=== PATIENT | female | born 1990 | race Caucasian/White ===

== ENCOUNTER 2019-06-13 16:57 | Emergency (ER) | payer SELFPAY ==
[~2019-06-13] VITALS: Ht 170.2 cm; Wt 99.8 kg
[2019-06-13 17:15] VITALS: BP 162/87
[2019-06-13] MEDS ORDERED: ALBU2.5V8 INH (17:40)
[2019-06-13] MEDS ORDERED: AZIT250T PO (17:40)
--- NOTE | 2019-06-13 17:40 | PHYS DOC ---
Past Medical History Past Medical History: No Pertinent History Past Surgical History: Other Additional Past Surgical Histo: WISDOM TEETH Alcohol Use: None Drug Use: None Adult General Chief Complaint Chief Complaint: ASTHMA HPI HPI Patient is a 29 year old female, accompanied by her significant other, who r esents to the emergency room with complaints of chest congestion, nasal congestion, left ear pain, and asthma exacerbation that started yesterday. Patient states her pain as a 5 out of 10 on the pain scale, she denies any alleviating or exacerbating factors. She states she has a Ventolin inhaler but it over 5 years ago, she is not currently taking any prescription medications. Patient states she started taking Mucinex yesterday with no relief of her symptoms. ROS Patient denies any fever, sore throat, abdominal pain, back pain, dysuria, wheezing, or difficulty speaking. She reports a large amount of postnasal drainage with one episode of nausea and vomiting earlier today. Patient denies any diarrhea. She complains of her head feeling full, she denies any vision changes.All other ROS is neg unless otherwise noted in HPI. Review of Systems Review of Systems See Above Allergies Allergies Allergies Coded Allergies Type Severity Reaction Last Updated Verified Penicillins Allergy Unknown 08/24/14 No cefaclor Allergy Unknown 08/24/14 No codeine Allergy Unknown 08/24/14 No Physical Exam Physical Exam See Above Constitutional: Well developed, well nourished, no acute distress, non-toxic appearance, obese. [] HENT: Normocephalic, atraumatic, bilateral external ears normal, left TM diffuse erythema with mild bulging no perforation, right TM normal, cobblestone appearance of posterior pharynx with mild erythema, tonsils normal bilaterally, oropharynx moist, no oral exudates, nasal turbinates are edematous and erythematous bilaterally Eyes: PERRLA, EOMI, conjunctiva normal, no discharge. [] Neck: Normal range of motion, no tenderness, supple, no stridor. [] Cardiovascular:Heart rate regular rhythm, no murmur [] Lungs & Thorax: Bilateral breath sounds clear to auscultation, no wheezing, no retractions, speaking full sentences [] Skin: Warm, dry, no erythema, no rash. [] Back: No CVA tenderness. [] Extremities: No cyanosis, no clubbing, ROM intact, no edema. [] Neurologic: Alert and oriented X 3, no focal deficits noted. [] Psychologic: Affect normal, judgement normal, mood normal. [] Current Patient Data Vital Signs Vital Signs Date Time Temp Pulse Resp B/P (MAP) Pulse Ox O2 Delivery O2 Flow Rate FiO2 06/13/19 17:15 98.5 77 16 162/87 (112) 99 Room Air 98.5 EKG EKG [] Radiology/Procedures Radiology/Procedures [] Course & Med Decision Making Course & Med Decision Making Pertinent Labs and Imaging studies reviewed. (See chart for details) [] Dragon Disclaimer Dragon Disclaimer This electronic medical record was generated, in whole or in part, using a voice recognition dictation system. Departure Departure Impression: Primary Impression: URI (upper respiratory infection) Additional Impression: Acute suppurative otitis media of left ear without spontaneous rupture of tympanic membrane Disposition: HOME, SELF-CARE Condition: STABLE Referrals: MONICA MORRISSEY MD (PCP) Patient Instructions: Otitis Media, Adult, [id number], Upper Respiratory Infection, Adult, [id number] Additional Instructions: Fill prescription(s) and use as directed. Recommend use of a Cool mist humidifier in room at bedtime. Alternate Tylenol or ibuprofen as needed for pain/fever. Increase clear fluids. Avoid airway triggers such as smoke, fragrance, dust, and pollen. May take [id number] cough suppressants as needed. Follow-up with your primary care doctor if symptoms persist, return to the ER if symptoms worsen. Scripts Albuterol Sulfate (Proair Hfa) 8.5 Gm Hfa.aer.ad 2 PUFF INH PRN Q4-6HRS PRN for SHORTNESS OF BREATH, #1 INHALER 1 Refill Prov: EVELINA PORRAS [employer] 06/13/19 Azithromycin (ZITHROMAX) 250 Mg Tablet 1 PKG PO UD, #6 TAB 0 Refills Prov: EVELINA PORRAS [employer] 06/13/19 Problem Qualifiers Primary Impression: URI (upper respiratory infection) URI type: unspecified viral URI Qualified Codes: J06.9 - Acute upper respiratory infection, unspecified Additional Impression: Acute suppurative otitis media of left ear without spontaneous rupture of tympanic membrane Recurrence: not specified as recurrent Qualified Codes: H66.002 - Acute suppurative otitis media without spontaneous rupture of ear drum, left ear EVELINA PORRAS APRN Jun 13, 2019 17:40
== END 2019-06-13 17:57 | disposition home or self-care (01) ==
LOC: ER 16:57
DX: J06.9 Acute upper respiratory infection, unspecified (principal); H66.002 Acute suppurative otitis media without spontaneous rupture of ear drum, left ear; J45.901 Unspecified asthma with (acute) exacerbation; Z88.0 Allergy status to penicillin; Z88.5 Allergy status to narcotic agent; Z88.8 Allergy status to other drugs, medicaments and biological substances
CPT/HCPCS: 99283